=== PATIENT | female | born 1975 | race Caucasian/White ===

== ENCOUNTER 2017-05-13 13:28 | Emergency (ER) | payer BC ==
[2017-05-13 13:44] VITALS: BP 132/77
--- NOTE | 2017-05-13 14:39 | UC ---
Throat Pain/Nasal Dariusz HPI - HPI Summary HPI Summary: Patient presents to the with CC of sore throat x 2 days which has been worsening. Endorses odynophagia, but denies dysphagia. 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 She denies fevers, sweats or chills. She is otherwise healthy , takes no medications. Denies N/V/C/D or chest pain. Denies SOB, non-smoker. - History of Current Complaint Chief Complaint: UCGeneralIllness Stated Complaint: S.T Time Seen by Provider: 05/13/17 13:57 Hx Obtained From: Patient Hx Last Menstrual Period: 05/09/17 ?: No Onset/Duration: Sudden Onset Severity: Moderate Pain Intensity: 4 Pain Scale Used: 0-10 Numeric Associated Signs & Symptoms: Negative: Dysphagia, Drooling, Hoarseness, Fever, Vomiting - Allergies/Home Medications Allergies/Adverse Reactions: Allergies Allergy/AdvReac Type Severity Reaction Status Date / Time No Known Allergies Allergy Verified 05/13/17 13:44 Home Medications: Home Medications Dextromethorphan-Phenylephrine [Vicks Dayquil Cold & Flu 10-5-325 mg] 2 tab PO Q4HR PRN 05/13/17 [History Confirmed 05/13/17] Sertraline* [Zoloft*] 1 tab PO DAILY 05/13/17 [History Confirmed 05/13/17] PMH/Surg Hx/FS Hx/Imm Hx Previously Healthy: Yes Other History Of: Negative For: HIV, Hepatitis B, Hepatitis C, Anticoagulant Therapy - s - Surgical History Surgical History: Yes Surgery Procedure, Year, and Place: D & C 2007 - Family History Known Family History: Positive: Hypertension, Other - shannan's - Social History Occupation: Employed Full-time Lives: With Family Alcohol Use: None Substance Use Type: None Smoking Status (MU): Never Smoked Tobacco Have You Smoked in the Last Year: No - Immunization History Most Recent Influenza Vaccination: NOT UTD Review of Systems Constitutional: Negative Skin: Negative ENT: Sore Throat Respiratory: Negative Cardiovascular: Negative Motor: Negative Neurovascular: Negative Musculoskeletal: Negative Neurological: Negative Is Patient Immunocompromised?: No All Other Systems Reviewed And Are Negative: Yes Physical Exam Triage Information Reviewed: Yes Appearance: Well-Appearing, No Pain Distress, Well-Nourished Vital Signs: Initial Vital Signs Temp 99.7 F 05/13/17 13:41 Pulse 86 05/13/17 13:41 Resp 16 05/13/17 13:41 BP 132/77 05/13/17 13:41 Pulse Ox 99 05/13/17 13:41 Vital Signs Reviewed: Yes Eye Exam: Normal Eyes: Positive: Conjunctiva Clear ENT: Positive: Hearing grossly normal, Pharyngeal erythema, TMs normal, Tonsillar swelling. Negative: Pharynx normal, Nasal congestion, Nasal drainage , TM bulging, TM dull, TM red, Tonsillar exudate, Trismus, Muffled voice, Hoarse voice, Dental tenderness, Sinus tenderness, Uvula midline Neck exam: Normal Neck: Positive: Supple, No Lymphadenopathy Respiratory Exam: Normal Respiratory: Positive: Chest non-tender, Lungs clear Cardiovascular Exam: Normal Cardiovascular: Positive: RRR Musculoskeletal Exam: Normal Musculoskeletal: Positive: Strength Intact Neurological: Positive: Alert Psychological Exam: Normal Psychological: Positive: Normal Response To Family Skin Exam: Normal Throat Pain/Nasal Course/Dx - Course Course Of Treatment: Strep +. Patient is given penicillin. Encouraged tylenol for any fevers or aches. Precautions and return to activities given. - Differential Dx/Diagnosis Provider Diagnoses: Strep throat Discharge - Discharge Plan Condition: Stable Disposition: HOME Prescriptions: Fluconazole 150 MG (NF) [Diflucan 150 mg (NF)] 150 mg PO ONCE #2 tab Penicillin VK 500 MG TAB(NF) [Penicillin VK 500 mg Tab(NF)] 500 mg PO BID #20 tab MDD 2 Patient Education Materials: Strep Throat (ED) Referrals: Stewatr Donovan MD [Primary Care Provider] - Additional Instructions: Dx: Strep Throat You will need antibiotic medicine to treat your strep throat. Please take the antibiotic as directed. You should feel better within 2 to 3 days after you start antibiotics. You may return to work or school 24 hours after you start antibiotics. If you have any questions about your medications, please do no hesitate to call or talk with your pharmacist. How can I manage my symptoms? Use lozenges, ice, soft foods, or popsicles to soothe your throat. Drink juice, milk shakes, or soup if your throat is too sore to eat solid food. Drinking liquids can also help prevent dehydration. Gargle with salt water. Mix teaspoon salt in a 1 cup of warm water and gargle. This may help reduce swelling in your throat. Do not smoke. Nicotine and other chemicals in cigarettes and cigars can cause lung damage and make your symptoms worse. Ask your healthcare provider for information if you currently smoke and need help to quit. E-cigarettes or smokeless tobacco still contain nicotine. Talk to your healthcare provider before you use these products. How do I prevent the spread of strep throat? Wash your hands often. Use soap and water. Wash your hands after you use the bathroom, change a child's diapers, or sneeze. Wash your hands before you prepare or eat food. Do not share food or drinks. Replace your toothbrush after you have taken antibiotics for 24 hours.
== END 2017-05-13 14:47 | disposition home or self-care (01) ==
LOC: UCEAST 13:28
DX: J02.0 Streptococcal pharyngitis (principal)
CPT/HCPCS: 87651; 99212; G0463

== ENCOUNTER 2017-12-25 18:11 | Emergency (ER) | payer BC ==
[2017-12-25 18:47] VITALS: BP 118/84
--- NOTE | 2017-12-25 19:08 | ED ---
Throat Pain/Nasal Congestion - HPI Summary HPI Summary: The pt is a 42 y with a PMHx of sinusitis presenting to c/o a sore throat worse today. The pain described as an ache is rated 7/10 in severity. She notes productive cough, post nasal drip, itchiness in the ear, body aches and a burning feeling in the chest, ear and throat. The pt denies fever , wheezing, and dyspnea. She has NKDA and takes Claritin for seasonal allergies. This is scribe Claudette Segura documenting for attending Dr. Ankit Gray . I, Dr. Ankit Gray personally performed the services described in this documentation as scribed in my presence and it is both accurate and complete. - History of Current Complaint Chief Complaint: UCGeneralIllness Time Seen by Provider: 12/25/17 19:03 Hx Obtained From: Patient Onset/Duration: Still Present, Worse Since - Today Severity: Moderate Associated Signs And Symptoms: Positive: Sinus Discomfort Cough: Productive Related History: Seasonal Allergies, Other (Noted In Comments) - PMHx of siinusitis - Allergies/Home Medications Allergies/Adverse Reactions: Allergies Allergy/AdvReac Type Severity Reaction Status Date / Time No Known Allergies Allergy Verified 12/25/17 18:47 Home Medications: Home Medications ALPRAZolam TAB* [Xanax TAB*] 0.25 mg PO Q6H PRN 12/25/17 [History Confirmed ] PMH/Surg Hx/FS Hx/Imm Hx Previously Healthy: No - PMHx of sinusitis Endocrine/Hematology History: Denies: Hx Anticoagulant Therapy - s, Hx Diabetes, Hx Thyroid Disease Cardiovascular History: Denies: Hx Congestive Heart Failure, Hx Deep Vein Thrombosis, Hx Hypertension , Hx Myocardial Infarction, Hx Pacemaker/ICD Respiratory History: Denies: Hx Asthma, Hx Chronic Obstructive Pulmonary Disease (COPD), Hx Lung Cancer, Hx Pneumonia, Hx Pulmonary Embolism GI History: Denies: Hx Gall Bladder Disease, Hx Gastrointestinal Bleed, Hx Ulcer, Hx Urosepsis History: Denies: Hx Kidney Stones, Hx Renal Disease Neurological History: Denies: Hx Dementia, Hx Migraine, Hx Seizures, Hx Transient Ischemic Attacks (TIA) Psychiatric History: Reports: Hx Anxiety Denies: Hx Depression, Hx Schizophrenia, Hx Bipolar Disorder - Surgical History Surgery Procedure, Year, and Place: D & C 2008 Infectious Disease History: No Infectious Disease History: Denies: Hx Clostridium Difficile, Hx Hepatitis, Hx Human Immunodeficiency Virus (HIV), Hx of Known/Suspected MRSA, Hx Shingles, Hx Tuberculosis, Hx Known/ Suspected VRE, Hx Known/Suspected VRSA, History Other Infectious Disease, Traveled Outside the [place] in Last 30 Days - Family History Known Family History: Positive: Hypertension, Other - shannan's - Social History Occupation: Unemployed Lives: With Family Alcohol Use: Occasionally Substance Use Type: Reports: None Smoking Status (MU): Never Smoked Tobacco Have You Smoked in the Last Year: No Review of Systems Constitutional: Other - Positive: Body aches Positive: Sore Throat, Ear Ache - Itchiness Respiratory: Negative - Wheezing Positive: Cough, Other - Positive: Post nasal drip. Negative: Shortness Of Breath All Other Systems Reviewed And Are Negative: Yes Physical Exam - Summary Physical Exam Summary: General: well-appearing, no pain distress Skin: warm, color reflects adequate perfusion, dry Head: normal Eyes: EOMI, GUEVARA ENT: normal Neck: supple, nontender Respiratory: Posterior pharynx is erythematous ;dry cough CTA, breath sounds present Cardiovascular: RRR Abdomen: soft, nontender Bowel: present Musculoskeletal: normal, strength/ROM intact Neurological: sensory/motor intact, A&O x3 Psychological: affect/mood appropriate Triage Information Reviewed: Yes Vital Signs On Initial Exam: Initial Vitals Temp Pulse Resp BP Pulse Ox 98.0 F 78 20 118/84 99 12/25/17 18:43 12/25/17 18:43 12/25/17 18:43 12/25/17 18:43 12/25/17 18:43 Vital Signs Reviewed: Yes Diagnostics - Vital Signs Vital Signs Temp Pulse Resp BP Pulse Ox 12/25/17 18:43 98.0 F 78 20 118/84 99 - Laboratory Lab Statement: Any lab studies that have been ordered have been reviewed, and results considered in the medical decision making process. EENT Course/Dx - Course Course Of Treatment: > 10 DAYS OF SINUSITIS SX - Diagnoses Provider Diagnoses: Sinusitis Discharge - Sign-Out/Discharge Documenting (check all that apply): Patient Departure - Discharge Plan Condition: Stable Disposition: HOME Prescriptions: Amoxicillin/Clavulanate TAB* [Augmentin TAB 875*] 875 mg PO BID #20 tab Patient Education Materials: Sinusitis (ED) Referrals: Stewart Donovan MD [Primary Care Provider] - Additional Instructions: FOLLOW UP WITH YOUR DOCTOR IF NOT COMPLETELY IMPROVED. GET RECHECKED FOR ANY WORSENING OF YOUR CONDITION OR QUESTIONS OR CONCERNS. - Billing Disposition and Condition Condition: STABLE Disposition: Home
== END 2017-12-25 19:15 | disposition home or self-care (01) ==
LOC: UCEAST 18:11
DX: J32.9 Chronic sinusitis, unspecified (principal)
CPT/HCPCS: 99201; G0463

== ENCOUNTER 2018-05-15 07:03 | Emergency (ER) | payer BC ==
[2018-05-15 07:16] VITALS: BP 123/88
--- NOTE | 2018-05-15 07:45 | UC ---
Throat Pain/Nasal Dariusz HPI - HPI Summary HPI Summary: Patient has had head congestion and sinus pressure for a couple of weeks. About 1 week ago developed sore throat and body aches. No fever, nausea/ vomiting. Has a mild cough. - History of Current Complaint Chief Complaint: UCRespiratory Stated Complaint: SORE THROAT Time Seen by Provider: 05/15/18 07:18 Hx Obtained From: Patient Hx Last Menstrual Period: 04/20/18 Onset/Duration: Gradual Onset, Lasting Days, Still Present Severity: Moderate Pain Intensity: 5 Pain Scale Used: 0-10 Numeric Cough: Nonproductive Associated Signs & Symptoms: Negative: Fever - Allergies/Home Medications Allergies/Adverse Reactions: Allergies Allergy/AdvReac Type Severity Reaction Status Date / Time No Known Allergies Allergy Verified 12/25/17 18:47 Home Medications: Home Medications Acetaminophen [Tylenol] 05/15/18 [History] Ibuprofen TAB* [Motrin TAB* 800 MG] 05/15/18 [History] PMH/Surg Hx/FS Hx/Imm Hx Psychological History: Anxiety Other History Of: Negative For: HIV, Hepatitis B, Hepatitis C, Anticoagulant Therapy - s - Surgical History Surgical History: Yes Surgery Procedure, Year, and Place: D & C 2007, breast bx left-benign - Family History Known Family History: Positive: Hypertension, Other - shannan's - Social History Alcohol Use: None Substance Use Type: None Smoking Status (MU): Never Smoked Tobacco Have You Smoked in the Last Year: No - Immunization History Most Recent Influenza Vaccination: NOT UTD Review of Systems All Other Systems Reviewed And Are Negative: Yes Constitutional: Positive: Negative ENT: Positive: Sore Throat, Nasal Discharge, Sinus Congestion Respiratory: Positive: Cough Cardiovascular: Positive: Negative Gastrointestinal: Positive: Negative Physical Exam Triage Information Reviewed: Yes Appearance: Well-Appearing, No Pain Distress, Well-Nourished Vital Signs: Initial Vital Signs Temp 99.4 F 05/15/18 07:08 Pulse 100 05/15/18 07:08 Resp 16 05/15/18 07:08 BP 123/88 05/15/18 07:08 Pulse Ox 98 05/15/18 07:08 Laboratory Tests 05/15/18 07:23 Group A Strep Rapid Negative Vital Signs Reviewed: Yes Eyes: Positive: Conjunctiva Clear ENT: Positive: Hearing grossly normal, Pharynx normal, Nasal congestion, TMs normal Neck: Positive: Supple, Nontender, No Lymphadenopathy Respiratory Exam: Normal Cardiovascular Exam: Normal Abdomen Description: Positive: Soft Musculoskeletal: Positive: No Edema Neurological: Positive: Alert Psychological: Positive: Age Appropriate Behavior Skin: Negative: Rashes Throat Pain/Nasal Course/Dx - Differential Dx/Diagnosis Provider Diagnosis: Pharyngitis Discharge - Sign-Out/Discharge Documenting (check all that apply): Patient Departure All imaging exams completed and their final reports reviewed: No Studies - Discharge Plan Condition: Stable Disposition: HOME Patient Education Materials: Pharyngitis (ED) Referrals: Stewart Donovan MD [Primary Care Provider] - If Needed Additional Instructions: STREP TEST NEGATIVE. YOUR SYMPTOMS ARE LIKELY VIRALLY MEDIATED AND SHOULD RESOLVE ON THEIR OWN WITH TIME. NO INDICATION FOR ANTIBIOTICS AT PRESENT. REST, HYDRATE, OTC MEDS NEEDED. SEEK FOLLOW-UP IF YOU ARE NOT IMPROVING OVER THE NEXT 1-2 WEEKS. - Billing Disposition and Condition Condition: STABLE Disposition: Home
== END 2018-05-15 07:46 | disposition home or self-care (01) ==
LOC: UCEAST 07:03
DX: J02.9 Acute pharyngitis, unspecified (principal)
CPT/HCPCS: 87651; 99211; G0463

== ENCOUNTER 2019-08-20 08:39 | Emergency (ER) | payer BC, OTHER ==
--- OUTSIDE RECORDS SUMMARY | 2019-08-20 08:46 | XMS REPORT | Continuity of Care Document ---
:1975 External Reference #:[id number] Author Name Stewart Donovan M.D. Address [address] [facility] [address] [place] [address] Care Team Providers Name Role Phone Stewart Donovan MD - Family Medicine Care Team Information Vice Chairman [phone] Problems Active Problems Provider Date Allergic rhinitis Stewart Donovan M.D. Onset: 03/01/2012 Anxiety state Stewart Donovan M.D. Onset: 03/01/2012 Depressive disorder Stewart Donovan M.D. Onset: 05/18/2012 Panic disorder without agoraphobia Stewart Donovan M.D. Onset: 02/19/2014 Atopic dermatitis Stewart Donovan M.D. Onset: 01/06/2015 Social History Type Date Description Comments Sex Unknown Tobacco Use Start: Unknown Never Smoked Cigarettes ETOH Use Denies alcohol use Tobacco Use Start: Unknown Patient has never smoked Smoking Status Reviewed: 02/28/18 Patient has never smoked Allergies, Adverse Reactions, Alerts Active Allergies Reaction Severity Comments Date NKDA 11/11/2011 Seasonal 01/06/2015 Medications Active Medications SIG Qnty Indications Ordering Provider Date Citalopram 1 by mouth 90tabs F33.9 Stewart Donovan, 09/24/2018 Hydrobromide every day M.D. 20mg Tablets Claritin 1 by mouth 30tabs H66.92 Stewart Donovan, 05/25/2018 10mg Tablets every day M.D. Medications Administered in Office Medication SIG Qnty Indications Ordering Provider Date Intradermal Mantoux Ankit Lala, N.P. 02/28/2018 Injection Intradermal Mantoux Helen BarrazaP 04/19/2012 Injection Intradermal Mantoux Stewart Donovan M.D. 04/19/2012 Injection Intradermal Mantoux Stewart Donovan M.D. 03/01/2012 Injection Immunizations CPT Code Status Date Vaccine Lot # [id number] Given 02/13/2019 Flu Virus Vaccine, Quadrivalent, Slit Virus, Im [id number] Use 94734 Given 02/28/2018 Flu Vaccine [id number] 80253 Given 02/19/2014 Flu Vaccine [id number] 24029 Given 06/12/2012 Flu Vaccine [id number] 26540 Given 12/06/2010 TDaP Vital Signs Date Vital Result Comment 07/08/2019 11:02am BP Systolic 112 mmHg BP Diastolic 62 mmHg Height 65 inches 5'5" Weight 177.00 lb BMI (Body Mass Index) 29.5 kg/m2 Heart Rate 91 /min Respiratory Rate 16 /min 02/13/2019 3:39pm BP Systolic 115 mmHg BP Diastolic 79 mmHg Height 65 inches 5'5" Weight 178.00 lb BMI (Body Mass Index) 29.6 kg/m2 Heart Rate 74 /min Respiratory Rate 16 /min Results Test Acquired Date Facility Test Result H/L Range Note Laboratory test 07/08/2019 [facility], <pending> finding [address] [facility] (607)- - Vitamin D 25 Hydroxy <pending> Procedures Description No Information Available Medical Devices Description No Information Available Encounters Type Date Location Provider Dx Diagnosis Office Visit 07/08/2019 [facility] Stewart Donovan, F41.0 Panic disorder 11:00a M.D. 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 07/08/2019 F33.9 Major depressive disorder, recurrent, Stewart Donovan M.D. unspecified 07/08/2019 G47.00 Insomnia, unspecified Stewart Donovan M.D. 07/08/2019 F41.9 Anxiety disorder, unspecified Stewart Donovan M.D. 07/08/2019 Z79.899 Other mcfp (current) drug therapy Stewart Donovan M.D. 07/08/2019 E78.2 Mixed hyperlipidemia Stewart Donovan M.D. 07/08/2019 J30.9 Allergic rhinitis, unspecified Stewart Donovan M.D. 07/08/2019 L20.9 Atopic dermatitis, unspecified Stewart Donovan M.D. 07/08/2019 E66.9 Obesity, unspecified Stewart Donovan M.D. 07/08/2019 R53.83 Other fatigue Stewart Donovan M.D. 07/08/2019 N64.4 Mastodynia Stewart Donovan M.D. 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 07/08/2019 E55.9 Vitamin D deficiency, unspecified Stewart Donovan M.D. 07/08/2019 Z00.01 Encounter for general adult medical Stewart Donovan M.D. examination with abnormal findings 07/08/2019 Z12.31 Encounter for screening mammogram for Stewart Donovan M.D. malignant neoplasm of breast 02/13/2019 F41.0 Panic disorder [episodic paroxysmal anxiety] Ankit Lala , N.P. 02/13/2019 F33.9 Major depressive disorder, recurrent, Ankit Lala, N.P. unspecified 02/13/2019 G47.00 Insomnia, unspecified Ankit Lala, N.P. 02/13/2019 F41.9 Anxiety disorder, unspecified Ankit Lala, N.P. 02/13/2019 Z79.899 Other m[facility]p (current) drug therapy Ankit Lala N.P. 02/13/2019 E78.2 Mixed hyperlipidemia Ankit Lala N.P. 02/13/2019 J30.9 Allergic rhinitis, unspecified Ankit Lala N.P. 02/13/2019 L20.9 Atopic dermatitis, unspecified Ankit Lala, N.P. 02/13/2019 E66.9 Obesity, unspecified Ankit Lala, N.P. 02/13/2019 R53.83 Other fatigue Ankit Lala, N.P. 02/13/2019 N64.4 Mastodynia Ankit Lala, N.P. 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 02/13/2019 Z23 Encounter for immunization Ankit Lala N.P. Plan of Treatment 07/08/2019 - Stewart Donovan M.D.F41.0 Panic disorder [episodic paroxysmal anxiety]Comments:COUNCELLING AND REASSURANCE RELAXATION TECHNIQUES DISCUSSEDCOUNSELED RE: STRESSORS IN LIFE DUR KNVBUQFV88.9 Major depressive disorder, recurrent, unspecifiedComments:COUNCELLING AND REASSURANCE RELAXATION TECHNIQUES DISCUSSED COUNSELED RE: STRESSORS IN LIFEG47.00 Insomnia, unspecifiedComments:COUNCELLING AND REASSURANCE RELAXATION TECHNIQUES DISCUSSED COUNSELED RE: STRESSORS IN LIFE TYLENOLPM OR MOTRIN PM PRN DUR [id number] Anxiety disorder, unspecifiedComments:COUNCELLING AND REASSURANCE RELAXATION TECHNIQUES DISCUSSEDCOUNSELED RE: STRESSORS IN LIFE AVOID ALLENERGY/HIGH CAFFEINE DRINKS DUR CHECKEDFollow up:2 weeks.Z79.899 Other intermediate project manager (current) drug therapyComments:REVIEWED MEDICATIONS AND DIRECTIONS WITH PATIENT DUR UHKPTBFG76.2 Mixed hyperlipidemiaComments:DIET REVIEWED CONTINUE DIETWT LOSSF/U LAB FBWJ30.9 Allergic rhinitis, unspecifiedComments:INCREASE PO FLUID USE ANTIHISTAMINE PRN SECOND HAND SMOKING DSANDEINTE05.9 Atopic dermatitis, unspecifiedComments:SKIN CARE INSTRUCTIONS LOTION OR BABY OIL 2-3 APPLICATION PER DAYUSE MOISTURIZING SOAPAVOID PROLONGED WATER EXPOSUREAVOID USING HOT WATER IN NPPZFUZ74.9 Obesity, unspecifiedComments:WT LOSS COUNCELLINGEXERCISEDIET IHOYUMVVUWZN57.83 Other fatigueComments:INCRFEASE PO FLUIDCOUNCELLING AND REASSURANCE RESTN64.4 MastodyniaComments:WARM COMPRESS TYLENOL OR MOTRIN PRNRTC FOR F/UN60.22 Fibroadenosis of left breastComments:F/U WITH HYQGJUWFLL85.9 Vitamin D deficiency, unspecifiedComments:INCREASE EXPOSURE TO SUNREVIEW OF DIETZ00.01 Encounter for general adult medical examination with abnormal findingsComments:GOOD NUTRITION /EXERCISEDENTAL/ FLOSSING/ SELF CAREDROWNING/ SUN DAFETYSEAT BELT/ DRIVING SAFETYSPORT BIKE/ HELMET USESPORTS/ INJURY PREVENTIONVIOLENCE PREVENTION/ GUN SAFETYPARENTING ADVICE"SAFE AT HOME "SEX EDUCATION/ COUNSELINGBREAST/ TESTICULAR SELF EXAMEDUCATION GOALS/ ACTIVITIESLIMIT TV/ INTERNETUSETOBACCO/ ALCOHOL/ DRUGS/ INHALANTSPEER REFUSAL SKILLSSOCIAL INTERACTIONFAMILY FUNCTIONINGSELF CONTROLDEPRESSION/ ANXIETYNEXT APPOINTMENTYEARLY PHYSICAL WELLNESS EVALUATION F/U WITH OB /INTERNAL SECURITY MANAGER FOR PAPZ12.31 Encounter for screening mammogram for malignant neoplasm of breastNew Xrays: Mammography Screening; Bilateral; 2 View Each Breast, Ordered: 07/08/19 Functional Status Functional Condition Comment Date Status .None Active Mental Status Description No Information Available Referrals Description No Information Available
--- NOTE | 2019-08-20 09:42 | UC ---
Respiratory Complaint HPI - HPI Summary HPI Summary: 1-2 WEEKS OF GENERAL GI UPSET. PATIENT DENIES DISCRETE NAUSEA/VOMITING. NO DIARRHEA. NO FEVER. A COUPLE OF DAYS AGO DEVELOPED BILATERAL EAR PRESSURE, COUGH, INTERMITTENT SORE THROAT AND DIZZINESS. NO RECENT TRAVEL. 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 MANY OF THEM HAVE HAD VIRAL ILLNESSES. - History of Current Complaint Chief Complaint: UCGeneralIllness Stated Complaint: SORE THROAT/COUGH Time Seen by Provider: 08/20/19 09:40 Hx Obtained From: Patient Hx Last Menstrual Period: 08/13/19 Onset/Duration: Gradual Onset, Lasting Days, Still Present Timing: Constant Severity Initially: Moderate Severity Currently: Moderate Pain Intensity: 4 Pain Scale Used: 0-10 Numeric Character: Cough: Nonproductive Aggravating Factors: Nothing Alleviating Factors: Nothing Associated Signs And Symptoms: Negative: Dyspnea, Fever, Wheezing, URI, Nasal Congestion - Allergies/Home Medications Allergies/Adverse Reactions: Allergies Allergy/AdvReac Type Severity Reaction Status Date / Time No Known Allergies Allergy Verified 08/20/19 08:50 Home Medications: Home Medications ALPRAZolam TAB* [Xanax TAB*] 0.25 mg PO Q6H PRN 12/25/17 [History Confirmed 12/01] Citalopram TAB* [Celexa TAB*] 10 mg PO BEDTIME 08/20/19 [History Confirmed 08/19] Omeprazole 20 mg PO DAILY #30 capsule. 08/20/19 [Rx] PMH/Surg Hx/FS Hx/Imm Hx Psychological History: Anxiety Other History Of: Negative For: HIV, Hepatitis B, Hepatitis C, Anticoagulant Therapy - s - Surgical History Surgical History: Yes Surgery Procedure, Year, and Place: D & C 2008, breast bx left-benign - Family History Known Family History: Positive: Hypertension, Other - shannan's - Social History Alcohol Use: None Substance Use Type: None Smoking Status (MU): Never Smoked Tobacco Have You Smoked in the Last Year: No - Immunization History Most Recent Influenza Vaccination: NOT UTD Review of Systems All Other Systems Reviewed And Are Negative: Yes Constitutional: Positive: Fatigue ENT: Positive: Sore Throat, Ear Ache Respiratory: Positive: Cough Gastrointestinal: Positive: Abdominal Pain. Negative: Vomiting, Diarrhea, Nausea Physical Exam Triage Information Reviewed: Yes Appearance: Well-Appearing, No Pain Distress, Well-Nourished Vital Signs: Temp Pulse Resp BP Pulse Ox 99.8 F 82 18 123/75 97 08/20/19 10:45 08/20/19 10:45 08/20/19 10:45 08/20/19 10:45 08/20/19 10:45 Laboratory Tests 08/20/19 08/20/19 10:24 10:26 Influenza A (Rapid) Negative Influenza B (Rapid) Negative Group A Strep Rapid Negative Vital Signs Reviewed: Yes Eyes: Positive: Conjunctiva Clear ENT: Positive: Hearing grossly normal, Pharynx normal, TMs normal Neck: Positive: Supple, Nontender, No Lymphadenopathy Respiratory Exam: Normal Cardiovascular Exam: Normal Abdomen Description: Positive: Soft, Other: - TTP DIFFUSELY BUT WORST EPIGASTRIC REGION. NO REBOUND OR RIGIDITY. Negative: CVA Tenderness (R), CVA Tenderness (L), Distended Bowel Sounds: Positive: Present Musculoskeletal: Positive: No Edema Neurological: Positive: Alert Psychological: Positive: Age Appropriate Behavior Skin: Negative: Rashes Re-Evaluation - Re-Evaluation First Eval Re-Evaluation Time: 11:00 - ABDOMINAL PAIN RESLOVED AFTER GI COCKTAIL Change: Improved Respiratory Course/Dx - Course Course Of Treatment: ABDOMINAL DISCOMFORT IMPROVED AFTER GI COCKTAIL. WILL COVER PATIENT FOR GASTRITIS/REFLUX WITH A PPI. ENCOURAGED HER TO FOLLOW-UP WITH GI IF HER SYMPTOMS ARE PERSISTENT OR BECOME RECURRENT. TO THE ER WITHOUT FAIL IF SYMPTOMS WORSEN. FLU NEGATIVE. STREP NEGATIVE. GIVEN RESPIRATORY SYMPTOMS, TESTING FOR COVID19 DONE TODAY. PATIENT BEING DISCHARGED HOME TO SELF-ISOLATION AND WILL BE CONTACTED BY HD WITH RESULTS. CONTACT/DROPLET PRECAUTIONS TAKEN BY MYSELF DURING ENCOUNTER. I COLLECTED VITAL SIGNS AND SWABS. - Differential Dx/Diagnosis Provider Diagnosis: Abdominal pain, Acute URI Discharge ED - Sign-Out/Discharge Documenting (check all that apply): Patient Departure All imaging exams completed and their final reports reviewed: No Studies - Discharge Plan Condition: Stable Disposition: HOME Prescriptions: Omeprazole 20 mg PO DAILY #30 capsule. Patient Education Materials: Gastritis (ED), Gastroesophageal Reflux Disease ( ED) Forms: COVID-19 Tested & Isolation, *Gen. Provider Communication Referrals: [facility] [Provider Group] - 2 Weeks Stewart Donovan MD [Primary Care Provider] - If Needed Additional Instructions: YOU FELT BETTER AFTER THE GI COCKTAIL. WILL TREAT FOR GASTRITIS/REFLUX WITH A PROTON POMP INHIBITOR (ACID SKID STRAPPER). TAKE THE MEDICINE IN THE MORNING (IDEALLY AT LEAST 30 MINUTES BEFORE YOU EAT). EAT SLOWLY. STAY UPRIGHT AT LEAST 30 MINUTES AFTER EATING. EAT SMALLER, MORE FREQUENT MEALS OPPOSED TO LARGE INFREQUENT MEALS. AVOID POSSIBLE TRIGGER FOODS - GREASY, SPICY, ACIDIC FOODS. CAFFEINE, ALCOHOL. FLU NEGATIVE. STREP NEGATIVE. YOUR RESPIRATORY SYMPTOMS ARE LIKELY VIRALLY MEDIATED AND SHOULD RESOLVE ON THEIR OWN WITH TIME. NO INDICATION FOR ANTIBIOTICS AT PRESENT. GET REST AND STAY WELL HYDRATED. TESTING FOR COVID-19 COMPLETED TODAY. YOU SHOULD EXPECT RESULTS IN 3-7 DAYS. YOU ARE BEING DISCHARGED TO SELF-ISOLATION AT HOME. THE HEALTH DEPARTMENT WILL BE FOLLOWING UP WITH YOU. CALL 911 IF YOU DEVELOP WORSENING RESPIRATORY DISTRESS, FEVER, PAIN OR ANY OTHER CONCERNING SYMPTOMS. YOU MUST CLOSE DOWN YOUR DAYCARE. - Billing Disposition and Condition Condition: STABLE Disposition: Home
[2019-08-20] MEDS ORDERED: Al Hydrox/Mg Hydrox/Simet LIQ* 30 ML UDC PO ONE (10:24)
[2019-08-20] MEDS ORDERED: Lidocaine 2% VISCOUS* 15 ML UDC PO ONE (10:24)
[2019-08-20 10:38] LABS: Influenza A Molecular Negative (Negative); Influenza B Molecular Negative (Negative)
[2019-08-20 10:46] VITALS: BP 123/75
== END 2019-08-20 11:12 | disposition home or self-care (01) ==
LOC: UCEAST 08:39
DX: R10.84 Generalized abdominal pain (principal); R10.13 Epigastric pain; J06.9 Acute upper respiratory infection, unspecified; Z20.828 Contact with and (suspected) exposure to other viral communicable diseases; F41.9 Anxiety disorder, unspecified; Z79.899 Other long term (current) drug therapy
CPT/HCPCS: 87635; 87651; 99212; A9270-GY; G0463; G2023

== ENCOUNTER 2019-08-27 08:43 | Emergency (ER) | payer BC ==
[2019-08-27 09:04] VITALS: BP 144/96
--- NOTE | 2019-08-27 09:05 | UC ---
UC General HPI - HPI Summary HPI Summary: Symptoms started 10 days Sinus pressure - constant drainage. Sinus pressure over bridge Not taking anything for this SOre throat and painful Taking ibuprofen, tylenol - not alleviating the throat pain No fevers. 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 Was initially seen here at onset of symptoms on 08/19 - neg strep and COVID at that time - History of Current Complaint Chief Complaint: UCRespiratory Stated Complaint: SORE THROAT SINUS ISSUE Time Seen by Provider: 08/27/19 08:51 Hx Last Menstrual Period: 2 weeks ago Pain Intensity: 3 - Allergy/Home Medications Allergies/Adverse Reactions: Allergies Allergy/AdvReac Type Severity Reaction Status Date / Time No Known Allergies Allergy Verified 08/27/19 08:53 Home Medications: Home Medications ALPRAZolam TAB* [Xanax TAB*] 0.25 mg PO Q6H PRN 12/25/17 [History Confirmed ] Citalopram TAB* [Celexa TAB*] 10 mg PO BEDTIME 08/20/19 [History Confirmed 08/26] Omeprazole 20 mg PO DAILY #30 capsule. 08/20/19 [Rx Confirmed 08/27/19] Acetaminophen [Acetaminophen Extra Strength] 1,000 mg PO ONCE PRN 08/27/19 [ History Confirmed 08/27/19] Fluticasone NASAL SPRAY 50MCG* [Flonase NASAL SPRAY 50MCG*] 2 spray BOTH NARES DAILY #1 btl 08/27/19 [Rx] Ibuprofen 600 mg PO ONCE PRN 08/27/19 [History Confirmed 08/27/19] PMH/Surg Hx/FS Hx/Imm Hx Previously Healthy: Yes Other History Of: Negative For: HIV, Hepatitis B, Hepatitis C, Anticoagulant Therapy - s - Surgical History Surgical History: Yes Surgery Procedure, Year, and Place: D & C 2008, breast bx left-benign - Family History Known Family History: Positive: Hypertension, Other - shannan's - Social History Alcohol Use: None Substance Use Type: None Smoking Status (MU): Never Smoked Tobacco Have You Smoked in the Last Year: No - Immunization History Most Recent Influenza Vaccination: NOT UTD Review of Systems All Other Systems Reviewed And Are Negative: Yes ENT: Positive: Sore Throat, Sinus Congestion, Sinus Pain/Tenderness Physical Exam Triage Information Reviewed: Yes Appearance: Well-Appearing Vital Signs: Initial Vital Signs Temp 98.9 F 08/27/19 09:03 Pulse 68 08/27/19 09:03 Resp 18 08/27/19 09:03 BP 144/96 08/27/19 09:03 Pulse Ox 99 08/27/19 09:03 Eyes: Positive: Conjunctiva Clear ENT: Positive: Pharyngeal erythema, Nasal congestion, Tonsillar swelling, Other - TM's - mild b/l clear fluid Neck: Positive: Supple, Nontender Respiratory: Positive: Lungs clear, Normal breath sounds Cardiovascular: Positive: RRR, No Murmur Course/Dx - Course Course Of Treatment: This is a 44 yr old with sore throat and sinus congestion Rapid strep negative Plan Rapid strep negative I suspect your symptoms are due to allergies REcommend starting flonase as prescribed Start antihistamine such as zyrtec or claritin Can also start nasal saline rinses If symptoms persist or worsen, recommend follow up with PCP or return to urgent care - Diagnoses Provider Diagnosis: Seasonal allergies Discharge ED - Sign-Out/Discharge Documenting (check all that apply): Patient Departure All imaging exams completed and their final reports reviewed: No Studies - Discharge Plan Condition: Good Disposition: HOME Patient Education Materials: Allergies (ED) Referrals: Stewart Donovan MD [Primary Care Provider] - Additional Instructions: Rapid strep negative I suspect your symptoms are due to allergies REcommend starting flonase as prescribed Start antihistamine such as zyrtec or claritin Can also start nasal saline rinses If symptoms persist or worsen, recommend follow up with PCP or return to urgent care - Billing Disposition and Condition Condition: GOOD Disposition: Home
== END 2019-08-27 09:24 | disposition home or self-care (01) ==
LOC: UCEAST 08:43
DX: J30.2 Other seasonal allergic rhinitis (principal); J02.9 Acute pharyngitis, unspecified
CPT/HCPCS: 87651; 99212; G0463